=== PATIENT | male | born 1950 | race Caucasian/White ===

== ENCOUNTER 2022-04-08 14:04 | Emergency (ER) | payer MEDICARE, OTHER ==
[2022-04-08 15:42] VITALS: BP 86/48; PULSE 70
[2022-04-08] MEDS ORDERED: Sodium Chloride 0.9% 2.5 ML Syringe FLUSH PRN (15:55)
[2022-04-08] MEDS ORDERED: Ondansetron 4 MG/2 ML SDV IVPUSH ONE (15:55)
[2022-04-08] MEDS ORDERED: Sodium Chloride 0.9% 10 ML Syringe FLUSH PRN (15:55)
[2022-04-08] MEDS ORDERED: Sodium Chloride 0.9% 1,000 ML IV ONE (15:55)
[2022-04-08 16:11] LABS: CORONAVIRUS COVID-19 NAA NEGATIVE (NEGATIVE); INFLUENZA A NAA POSITIVE (NEGATIVE); INFLUENZA B NAA NEGATIVE (NEGATIVE)
[2022-04-08] MEDS ORDERED: Oseltamivir 75 MG Cap PO ONE (16:33)
[2022-04-08 17:21] LABS: CARBON DIOXIDE,CO2 20.4 mmol/L (21.0-32.0)
[2022-04-08] MEDS ORDERED: Loperamide 2 MG Cap PO ONE (17:44)
== END 2022-04-08 18:04 | disposition home or self-care (01) ==
LOC: MW.ED 14:04
DX: J10.1 Influenza due to other identified influenza virus with other respiratory manifestations (principal); R19.7 Diarrhea, unspecified; E78.00 Pure hypercholesterolemia, unspecified; I10 Essential (primary) hypertension; E11.9 Type 2 diabetes mellitus without complications; I25.10 Atherosclerotic heart disease of native coronary artery without angina pectoris; I25.2 Old myocardial infarction; Z95.1 Presence of aortocoronary bypass graft; Z20.822 Contact with and (suspected) exposure to COVID-19; Z79.02 Long term (current) use of antithrombotics/antiplatelets; Z79.899 Other long term (current) drug therapy
CPT/HCPCS: 0240U; 36415; 74176; 80053; 81001; 85025; 96361; 96374; 99284; A9270; J2405; J3490; J7030

== ENCOUNTER 2022-04-20 15:48 | Emergency (ER) | payer MEDICARE, OTHER | END 2022-04-20 22:44 | disposition left against medical advice (07) | LOC: MW.ED 15:48 | DX: Z53.21 Procedure and treatment not carried out due to patient leaving prior to being seen by health care provider (principal) ==